=== PATIENT | female | born 1940 | race Caucasian/White ===

== ENCOUNTER → 2018-07-04 | Outpatient (CLI) | payer OTHER ==
[~2018-07-04] VITALS: Ht 165.1 cm; Wt 67.1 kg
[~2018-07-04] MED LIST: ASPIR 8181 MG PO; COZAAR 25 MG TA25 M1 PO; LIPITOR10 MG PO; OMEPRAZOLE 20 M20 M1 PO; TUMS PO; URSODIOL300 MG PO; VITAMIN B-12500 MC5 PO; VITAMIN D1000 UNI1 PO
--- NOTE | 2018-07-05 08:37 | P ---
[facility] [place] [address] PROCEDURE REPORT Name: DEE CRAIN Room #: REG [facility]#: [id number] Admission: 07/04/18 Attend Phys: Earn Nina MD Discharge: Date of : 39 Report #: [id number] THIS REPORT FOR: //name// CC: Eran Ren MD BRIEF HISTORY: The patient is a 78-year-old woman with a longstanding history of primary biliary cirrhosis for surveillance for esophageal varices. She has done well on long-term ursodiol. She also has had problems with intermittent reflux, which is not well controlled with omeprazole 20 mg daily. Exacerbations are intermittent. She also has globus sensation and has bouts of dysphagia in particular for pills. PREOPERATIVE DIAGNOSES: 1. Cirrhosis. 2. Dysphagia. 3. Reflux. POSTOPERATIVE DIAGNOSES: 1. Moderate erosive antral gastritis. 2. A 2 cm sliding type hiatus hernia. 3. Dysphagia. MEDICATIONS: Deep sedation with propofol per anesthesia. SPECIMEN: Biopsies of gastritis. ESTIMATED BLOOD LOSS: 3 mL. PROCEDURE: EGD with biopsy, Bishop dilation. FINDINGS: Prior to propofol sedation, procedure of upper endoscopy was reviewed with the patient as well as potential risks and its complications. She indicates she understands and desires that we proceed. DESCRIPTION OF PROCEDURE: With the patient placed in left lateral decubitus position, the [employer] video endoscope was inserted in the cervical esophagus under direct vision without difficulty. Examination of this organ over its entire length revealed normal esophageal mucosa down to the squamocolumnar junction. Squamocolumnar junction was inspected and noted to be unremarkable. There were no ulcers, erosions, strictures, masses or Spann mucosa. In addition, careful examination of distal esophagus did not reveal evidence of esophageal varices today. She was told at one point in the past she had flat varices, but I did not see any indication of varices whatsoever today. The scope was advanced to about a 2 cm sliding type hiatus hernia. Mucosa in the hernia was unremarkable. The scope was advanced in the stomach, which was examined on end view as well [facility] [address] [place] [address] PROCEDURE REPORT Name: DEE CRAIN Room #: REG SE[facility]DO Brennan#: [id number] Admission: 07/04/18 Attend Phys: Eran Nina MD Discharge: Date of : 39 Report #: [id number] as retroflexed views. There was a diffuse gastritis and a few scattered erosions in the antrum. No ulcers were seen. No bleeding lesions were seen. Upon retroflexion, the hiatus hernia was seen. No mass lesions were seen. Also, gastric varices were not seen. The pylorus, duodenal bulb and postbulbar duodenal sweep were all inspected and noted to be unremarkable without evidence of ulcer disease. At that point, the scope was slowly withdrawn and careful circumferential views confirmed the above findings. The patient tolerated the procedure well. Biopsies obtained of the gastritis. Due to her intermittent episodes of dysphagia, she was dilated with passage of a 52-Israeli Bishop dilator. CONDITION OF THE PATIENT UPON DISCHARGE: Following procedure, the patient drowsy, aroused, conversant and will be discharged home when fully ambulatory. INSTRUCTIONS TO THE PATIENT AND FAMILY AT THE TIME OF DISCHARGE: I do not see evidence of varices on examination today. She has done quite well with regards to her primary biliary cirrhosis. She continues to be seen annually at the [facility], [facility]. She will continue to do so. Continue to monitor labs. We will discuss with the patient. I do not have labs or imaging studies from . We will ask the patient to forward previous studies. I will continue to see her on an annual basis. <ELECTRONICALLY SIGNED> By: Eran Nina MD 07/05/18 0837 [id number] [id number] Eran Nina MD /nt
--- NOTE | 2018-07-05 16:07 | PATH ---
[facility] [address] [place] [address] PATHOLOGY RPT PROCEDURE Name: PARASGERMANIA Room #: REG SEGUNDO Brennan#: [id number] Admission: 07/04/18 Date of : 39 Discharge: Report #: [id number] Path Case #: [id number] [facility] Accession Number: [id number] . 01 Material submitted: . GASTRITIS BIOPSY R/O H. PYLORI . 01 Clinical history: . Pre-OP DX: Primary biliary cirrhosis, dysphagia Post-OP DX: Gastritis, hiatal hernia, dysphagia . 02 Diagnosis: Gastric mucosa, gastritis rule out H. pylori, endoscopic biopsy: - Mild reactive gastropathy. - Negative for intestinal metaplasia or atrophy. - Negative for Helicobacter pylori (properly controlled immunohistochemical stain performed). (IUV:pit 07/05/2018) QTP/07/05/2018 . 02 Electronically signed: . Belgica Turner MD, Pathologist NPI- [id number] . 01 Gross description: . Received in formalin labeled "Germania Crain, gastritis biopsy, rule out H. pylori," are 4 segments of pyle soft tissue measuring 1.1 x 0.6 x 0.2 cm in aggregate dimensions and ranging from 0.2 to 0.4 cm in maximum dimension. The specimen is submitted entirely in cassette A1. (TSD; 07/04/2018) TOB/TOB . 02 Pathologist provided ICD-10: K31.9 . 02 CPT . 256930, O62242 Specimen Comment: A courtesy copy of this report has been sent to Specimen Comment: [phone], . Specimen Comment: Report sent to / DR WHEATLEY Performed at: 01 [place] [id number] [address] [id number] MD Fabio Lao MD Phone: [phone] Performed at: [address] [id number] [address] [address] PATHOLOGY RPT PROCEDURE Name: GERMANIA CRAIN Room #: REG SEGUNDO Brennan#: [id number] Admission: 07/04/18 Date of : 39 Discharge: Report #: [id number] Path Case #: [id number] MD Belgica Turner MD Phone: [phone]
== END | disposition home or self-care (01) ==
LOC: GI 06:33
DX: K29.70 Gastritis, unspecified, without bleeding (principal); K44.9 Diaphragmatic hernia without obstruction or gangrene; K21.9 Gastro-esophageal reflux disease without esophagitis; Z85.528 Personal history of other malignant neoplasm of kidney; Z95.0 Presence of cardiac pacemaker; I10 Essential (primary) hypertension; E78.5 Hyperlipidemia, unspecified
CPT/HCPCS: 62110; 62900

== ENCOUNTER → 2019-05-26 | Outpatient (CLI) | payer OTHER ==
[~2019-05-26] VITALS: Ht 165.1 cm; Wt 64.9 kg
[~2019-05-26] MED LIST changes: +ACTIGALL300 MG PO; +ELIQUIS5 MG PO; -TUMS PO; +TUMS ULTRA400 MG PO
--- NOTE | 2019-05-27 16:06 | PATH ---
[facility] [address] [place] [address] PATHOLOGY RPT PROCEDURE Name: GERMANIA CRAIN Amy Room #: REG [facility] Matt.#: [id number] Admission: 05/26/19 Date of : 39 Discharge: Report #: [id number] Path Case #: [id number] [facility] Accession Number: [id number] . 01 Material submitted: . PART A: colon - RANDOM BIOPSY PROXIMAL COLON REGARDING DIARRHEA R/O COLITIS. Modifiers: proximal PART B: colon - POLYP AT MID ASCENDING COLON X2. Modifiers: mid, ascending PART C: rectum - RANDOM BIOPSY DISTAL COLON AND RECTUM REGARDING DIARRHEA R/O COLITIS. Modifiers: distal . 01 Clinical history: . Pre-OP DX: Diarrhea Post-OP DX: Hemorrhoids, diverticulosis, polyps . 02 Diagnosis: A. Large intestinal mucosa, random proximal colon, endoscopic biopsy: - Scattered rare focus of cryptitis associated with nonspecific changes. - Negative for microscopic colitis. - Negative for dysplasia or malignancy. . B. Polyp x2, at mid ascending colon, endoscopic biopsy: - Tubular adenoma identified in multiple fragments. - Negative for high grade dysplasia. . C. Large intestinal mucosa, distal colon and rectum, endoscopic biopsy: - One fragment showing active colitis along with fibrotic lamina propria. . (IUV:mml; 05/27/2019) [facility] 05/27/2019 1220 Local . 02 Comment: Sections of the colonic mucosa designated "proximal colon and distal colon/rectum" show focal cryptitis, and a moderately cellular lamina propria composed predominantly of lymphocytes and plasma cells and occasional eosinophils. Surface ulceration is not identified. There are no crypt abscesses, granulomas or viral inclusions. The process affects all the fragments with a similar intensity. Given the description, the differential diagnosis includes focal acute self-limited episode of colitis, resolving episode of colitis, medication/drug-induced colitis including laxative use, as well as acute diverticulitis. Please correlate with clinical as well as endoscopic findings. . (IUV:mml; 05/27/2019) . 02 Electronically signed: . Belgica Turner MD, [place] [address] PATHOLOGY RPT PROCEDURE Name: GERMANIA CRAIN Room #: REG SEGUNDO Brennan#: [id number] Admission: 05/26/19 Date of : 39 Discharge: Report #: [id number] Path Case #: [id number] [facility]- [id number] . 01 Gross description: . A. Received in formalin labeled "Riley, Germania, random BX proximal colon, rule out colitis," and additionally labeled on the requisition as "regarding Diarrhea," are 4 segments of pyle soft tissue measuring 0.9 x 0.9 x 0.2 cm in aggregate dimensions and ranging from 0.5 to 0.6 cm in maximum dimension. The specimen is submitted entirely in cassette A1. . B. Received in formalin labeled "Riley, Germania, polyp at mid ascending colon," and additionally labeled on the requisition as "x2," are 2 segments of pyle soft tissue measuring 0.9 x 0.3 x 0.2 cm in aggregate dimensions and ranging from 0.4 to 0.5 cm in maximum dimension. The specimen is submitted entirely in cassette B1. . C. Received in formalin labeled "Riley, Germania, random BX distal colon and rectum, rule out colitis," and additionally labeled on the requisition as "regarding diarrhea," are 6 segments of pyle soft tissue measuring 1.3 x 0.9 x 0.2 cm in aggregate dimensions and ranging from 0.3 to 0.6 cm in maximum dimension. The specimen is submitted entirely in cassette C1. (TSD; 05/26/2019) TOB/TOB 05/26/2019 2307 Local . 02 Pathologist provided ICD-10: K52.9, D12.2 . 02 CPT . 090849, 457424, 202208 Specimen Comment: A courtesy copy of this report has been sent to [phone] Specimen Comment: [phone] Specimen Comment: Report sent to and Performed at: [address], [place] [id number] MD Fabio Lao MD Phone: [phone] Performed at: [address], [place], [place] [id number] MD Belgica Turner MD Phone: [phone]
--- NOTE | 2019-05-28 16:47 | P ---
[facility] [place] [address] PROCEDURE REPORT Name: PARASDEE Amy Room #: REG [facility]#: [id number] Admission: 05/26/19 Attend Phys: Eran Nina MD Discharge: Date of : 39 Report #: [id number] THIS REPORT FOR: //name// CC: Elise Post, Nurse Practitioner Eran Ren MD BRIEF HISTORY: The patient is an 79-year-old woman known to me with recent change in bowel habits. She has had increased stool frequency and increased rectal urgency. She has had significant amount of mucus per rectum, but no rectal bleeding. History is significant for colon polyps. Also, her brother had surgery for benign lesion, which sounds like an advanced adenoma. Also, there is a family history of ulcerative colitis and Crohn's disease in 2 separate individuals. PREOPERATIVE DIAGNOSIS: Modification in bowel habits. POSTOPERATIVE DIAGNOSES: 1. Ascending colon polyps x 2. 2. Atuc-qh-anpanvtp diverticulosis coli. MEDICATIONS: Deep sedation with propofol per anesthesia. SPECIMENS: 1. Random biopsies, proximal colon, rule out colitis. 2. Polyps x 2, mid ascending colon. 3. Random biopsies, distal colon and rectum. ESTIMATED BLOOD LOSS: 3 mL. PROCEDURE: Colonoscopy to cecum and terminal ileum. FINDINGS: Prior to propofol sedation, procedure of colonoscopy discussed with the patient as well as potential risks and its complications. She indicates she understands and desires to proceed. DESCRIPTION OF PROCEDURE: With the patient in left lateral decubitus position, digital examination was completed, which revealed no abnormalities. Subsequently, the Olympus video colonoscope was introduced in the rectum, advanced under direct vision to the cecum. This was done with minimal difficulty. The cecum was identified by the ileocecal valve and the appendiceal orifice. I was able to visualize the distal segment of the terminal ileum, which was unremarkable. At that point, the scope was slowly withdrawn and careful circumferential views were obtained. The prep was excellent. The mucosa was within normal limits, normal vascular pattern, normal light reflex. As we withdrew the scope, no inflammatory changes were seen. An occasional [facility] [address] [place] [address] PROCEDURE REPORT Name: DEE CRAIN Room #: REG SEGUNDO Brennan#: [id number] Admission: 05/26/19 Attend Phys: Eran Nina MD Discharge: Date of : 39 Report #: [id number] diverticulum was seen in the proximal colon. Also, in the mid ascending colon, 2 polyps were seen, one was about 5 mm, removed by cold snare polypectomy. The other was a diminutive polyp removed with biopsy forceps. As we withdrew the scope, random biopsies were obtained. However, the mucosa throughout the entire exam was normal and there was no evidence of inflammatory changes. I did not see significant amount of mucus in her colon. No blood was seen. Scope was withdrawn throughout the remainder of the colon. In the sigmoid colon, there was [id number] sigmoid diverticular disease without endoscopic evidence of diverticulitis. Scope was withdrawn in the rectum. Upon retroflexion, no abnormalities were seen. Scope was withdrawn. The patient tolerated the procedure well. CONDITION OF THE PATIENT UPON DISCHARGE: Following procedure, the patient drowsy, aroused, conversant and will be discharged home when fully ambulatory. INSTRUCTIONS TO THE PATIENT AND FAMILY AT THE TIME OF DISCHARGE: We will follow up on the path of the polyps. If one or both are adenomas, she is to return for followup colon exam in 5 years. At that time, she will be 84 and whether or not to proceed with surveillance colonoscopy at that time will depend on her overall health status at that time as well as expectation to continue longevity. We will follow up on the biopsies regarding her change in bowel habits. No inflammatory changes were seen. At this point, I would suggest a fiber supplement such as Metamucil or Citrucel, which may help urgency and stool frequency. At age 79, I would avoid anticholinergics. If she has increased diarrhea, she may consider use of Imodium. She is to return for followup in the office in 1 year or sooner if needed, especially if symptoms persist. <ELECTRONICALLY SIGNED> By: Eran Nina MD 05/28/19 1647 0947 2229 Eran Nina MD /nt
--- NOTE | 2019-05-28 16:47 | P ---
[facility] [place] [address] PROCEDURE REPORT Name: DEE CRAIN Room #: REG [facility]#: [id number] Admission: 05/26/19 Attend Phys: Eran Nina MD Discharge: Date of : 39 Report #: [id number] THIS REPORT FOR: //name// CC: Eran Nina [facility] Jimi Ren MD DATE OF SERVICE: 05/26/2019 OUTPATIENT UPPER ENDOSCOPY BRIEF HISTORY: This is an 79-year-old woman with primary biliary cirrhosis who has had worsening upper abdominal pain. She does take 20 mg of omeprazole daily for reflux symptoms. She has had increased symptoms. She also has intermittent dysphagia for pills and also some solids. In addition, she reports she has a gallstone. Also, she is scheduled for a CT scan of the abdomen at [facility] in about 2 weeks. PREOPERATIVE DIAGNOSES: Increasing epigastric pain, reflux disease, solid food dysphagia and primary biliary cirrhosis. POSTOPERATIVE DIAGNOSES: 1. Small hiatus hernia. 2. Very mild Schatzki ring. 3. Esophageal varices, grade 1 or less. 4. Diffuse gastritis without ulcers or erosions. MEDICATIONS: Deep sedation with propofol per anesthesia. SPECIMEN: None. ESTIMATED BLOOD LOSS: None. PROCEDURE: EGD with Bishop dilation. FINDINGS: Prior to propofol sedation, procedure of upper endoscopy and potential dilation was discussed with the patient as well as potential risks, benefits, and complications. She indicates she understands and desires to proceed. DESCRIPTION OF PROCEDURE: With the patient in left lateral decubitus position, the Olympus video endoscope was inserted in the cervical esophagus under direct vision without difficulty. Examination of this organ through its entire style revealed normal esophageal mucosa throughout the entire length of the esophagus ulcers or erosions were not seen. As the scope was advanced in the distal [facility] [address] [place] [address] PROCEDURE REPORT Name: DEE CRAIN Room #: REG SEGUNDO Brennan#: [id number] Admission: 05/26/19 Attend Phys: Eran Nina MD Discharge: Date of : 39 Report #: [id number] esophagus, intermittently, very slight varices were seen with a bluish striped down the esophagus. These were only seen intermittently. These were no more than grade 1 varices. There is no stigmata of bleeding. These varices were much too tiny to consider banding. These were seen mostly in the mid esophagus. In the distal esophagus, varices were not seen. Intermittently, a very slight ring could be seen at the GE junction. Also, a small hiatus hernia was noted as well. Scope was advanced in the stomach, was examined on end view as well as retroflexed views. There was a diffuse gastritis. No ulcers or erosions were seen. Upon retroflexion, the hiatus hernia was seen. No other abnormalities were identified. The pylorus, duodenal bulb and post-coronary sweep were inspected and noted to be unremarkable. At that point, the scope was slowly withdrawn and careful circumferential views confirmed the above finding. It is noted that previous biopsies were negative for H. pylori and were not repeated today. She was very carefully dilated with passage of 52-Ugandan Bishop dilator after withdrawal of the scope. Upon reinsertion of the scope, there was no evidence of mucosal trauma except for some very slight mucosal changes at the upper esophageal sphincter. There is no evidence of bleeding. CONDITION OF THE PATIENT UPON DISCHARGE: Following procedure, the patient drowsy. She will be discharged home when fully ambulatory. INSTRUCTIONS TO THE PATIENT AND FAMILY AT THE TIME OF DISCHARGE: She has had increasing epigastric pain. She does have a gallstone. She is to be seen at the [facility] Clinic at [facility]. In the meantime, we will have her change her omeprazole to 40 mg twice daily, one-half hour prior to food. We were able to dilate her today without difficulty. Further dilation will need to be based on level of esophageal varices. At this point in time, suggest a repeat endoscopy for followup of varices in 1 year. Proceed with colonoscopy at this time. <ELECTRONICALLY SIGNED> By: Eran Nina MD 05/28/19 1647 0914 0947 Eran Nina MD /nt
== END | disposition home or self-care (01) ==
LOC: GI 07:34
DX: R19.4 Change in bowel habit (principal); D12.2 Benign neoplasm of ascending colon; K62.89 Other specified diseases of anus and rectum; K52.9 Noninfective gastroenteritis and colitis, unspecified; K57.30 Diverticulosis of large intestine without perforation or abscess without bleeding; K29.70 Gastritis, unspecified, without bleeding; K22.2 Esophageal obstruction; K44.9 Diaphragmatic hernia without obstruction or gangrene; K21.9 Gastro-esophageal reflux disease without esophagitis; K74.5 Biliary cirrhosis, unspecified; I85.00 Esophageal varices without bleeding; E78.5 Hyperlipidemia, unspecified; I48.91 Unspecified atrial fibrillation; Z86.010 Personal history of colon polyps; Z98.890 Other specified postprocedural states; Z85.528 Personal history of other malignant neoplasm of kidney; Z95.0 Presence of cardiac pacemaker; Z98.41 Cataract extraction status, right eye; Z98.42 Cataract extraction status, left eye; Z79.01 Long term (current) use of anticoagulants; Z79.899 Other long term (current) drug therapy
CPT/HCPCS: 62110; 62900